=== PATIENT | female | born 1945 | race Caucasian/White ===

== ENCOUNTER 2016-11-19 13:16 | Emergency (ER) | payer OTHER ==
[~2016-11-19] VITALS: Ht 152.4 cm; Wt 51.5 kg
[2016-11-19 16:20] VITALS: BP 146/60
== END 2016-11-19 16:20 | disposition home or self-care (01) ==
LOC: ED 13:16
DX: S92.122A Displaced fracture of body of left talus, initial encounter for closed fracture (principal); S83.92XA Sprain of unspecified site of left knee, initial encounter; I10 Essential (primary) hypertension; E11.9 Type 2 diabetes mellitus without complications; Z88.2 Allergy status to sulfonamides; Z79.4 Long term (current) use of insulin; Z79.899 Other long term (current) drug therapy; W17.89XA Other fall from one level to another, initial encounter; Y93.89 Activity, other specified; Y99.8 Other external cause status; Y92.89 Other specified places as the place of occurrence of the external cause

== ENCOUNTER 2018-04-24 17:26 | Inpatient (IN) | payer OTHER, MEDICAID ==
[~2018-04-24] VITALS: Ht 152.4 cm; Wt 49.1 kg
[2018-04-24 17:50] VITALS: Ht 152.4 cm; Wt 49.1 kg
[2018-04-24 18:52] LABS: BASOPHIL % 0.1 % (0-2); PLATELET COUNT 271 x10^3mcL (130-400)
[2018-04-24 18:56] LABS: ALBUMIN 2.5 g/dL (3.4-5.0); ALKALINE PHOSPHATASE 113 U/L (46-116); ALT/SGPT 15 U/L (14-59); AST/SGOT 20 U/L (15-37); BILIRUBIN TOTAL 0.7 mg/dL (0.20-1.00); CALCIUM 8.4 mg/dL (8.5-10.1); CARBON DIOXIDE 25.6 mmol/L (21-32); CHLORIDE SERUM 102 mmol/L (98-107); GLUCOSE SERUM 81 mg/dL (74-106); POTASSIUM SERUM 4.1 mmol/L (3.5-5.1); RED CELL DISTRIBUTION WIDTH 17.2 % (11.5-14.5); SODIUM SERUM 140 mmol/L (136-145); TOTAL PROTEIN, SERUM 6.8 g/dL (6.4-8.2)
[2018-04-24 18:57] LABS: CREATININE SERUM 4.6 mg/dL (0.6-1.0)
[2018-04-24] MEDS ORDERED: LANTUS SOLOS100 U/M1 SC (20:21)
[2018-04-24] MEDS ORDERED: LOSARTAN POTASS1 TA6 PO (20:21)
[2018-04-24] MEDS ORDERED: GABAPENTIN400 M1 PO (20:22)
[2018-04-24] MEDS ORDERED: CILOSTAZOL100 M1 PO (20:22)
[2018-04-24] MEDS ORDERED: PROZAC40 MG PO (20:22)
[2018-04-24] MEDS ORDERED: ATORVASTATIN CA40 M1 PO (20:22)
[2018-04-24] MEDS ORDERED: HUMALOG KW100 UNIT/1 SC (20:24)
[2018-04-24] MEDS ORDERED: GOOD SENSE ASPI81 M3 PO (20:24)
[2018-04-24 21:11] VITALS: BP 137/72
[2018-04-24 21:29] VITALS: BP 137/72
[2018-04-24 23:10] VITALS: BP 137/72
[2018-04-25 00:32] LABS: MAGNESIUM 2.3 mg/dL (1.8-2.4); PHOSPHOROUS 4.3 mg/dL (2.5-4.9)
[2018-04-25 00:35] LABS: CHOLESTEROL/HDL RATIO 2.7
[2018-04-25 05:34] VITALS: BP 126/60
[2018-04-25 07:24] LABS: CARBON DIOXIDE 22.7 mmol/L (21-32); CHLORIDE SERUM 101 mmol/L (98-107); GLUCOSE SERUM 297 mg/dL (74-106); MAGNESIUM 1.9 mg/dL (1.8-2.4); PHOSPHOROUS 4.1 mg/dL (2.5-4.9); POTASSIUM SERUM 4.1 mmol/L (3.5-5.1); SODIUM SERUM 137 mmol/L (136-145)
[2018-04-25 07:33] LABS: BASOPHIL % 0.3 % (0-2); PLATELET COUNT 239 x10^3mcL (130-400)
[2018-04-25 07:39] LABS: CREATININE SERUM 4.9 mg/dL (0.6-1.0)
[2018-04-25 07:44] LABS: RED CELL DISTRIBUTION WIDTH 17.2 % (11.5-14.5)
[2018-04-25 09:16] VITALS: BP 132/58
[2018-04-25 13:52] VITALS: BP 129/59
[2018-04-25 17:27] VITALS: BP 111/51
[2018-04-25 19:00] VITALS: BP 137/67
[2018-04-26 05:23] VITALS: BP 113/53
[2018-04-26 06:08] LABS: BASOPHIL % 0.4 % (0-2); PLATELET COUNT 269 x10^3mcL (130-400)
[2018-04-26 06:29] LABS: IRON 14 ug/dL (50-170); TOTAL IRON BINDING CAPACITY 133 ug/dL (250-450)
[2018-04-26 06:42] LABS: CALCIUM 8.3 mg/dL (8.5-10.1); CARBON DIOXIDE 23.7 mmol/L (21-32); CHLORIDE SERUM 98 mmol/L (98-107); GLUCOSE SERUM 90 mg/dL (74-106); POTASSIUM SERUM 4.5 mmol/L (3.5-5.1); SODIUM SERUM 135 mmol/L (136-145)
[2018-04-26 06:57] LABS: CREATININE SERUM 5.7 mg/dL (0.6-1.0)
[2018-04-26 07:04] LABS: RED CELL DISTRIBUTION WIDTH 16.8 % (11.5-14.5)
[2018-04-26 09:00] VITALS: BP 119/46
[2018-04-26 12:37] VITALS: BP 101/41
[2018-04-26 15:51] LABS: SOURCE FLUID THORACENTESIS
[2018-04-26 15:53] LABS: APPEARANCE FLUID HAZY; COLOR FLUID YELLOW; LYMPHOCYTE FLUID 25 %; MONOCYTE FLUID 5 %; RBC FLUID 507 /cumm; WBC FLUID 573 /cumm
[2018-04-26 16:25] VITALS: BP 122/46
[2018-04-26 19:00] VITALS: BP 142/62
[2018-04-27 05:57] VITALS: BP 111/50
[2018-04-27 06:42] LABS: BASOPHIL % 1.2 % (0-2); PLATELET COUNT 286 x10^3mcL (130-400)
[2018-04-27 06:44] LABS: RED CELL DISTRIBUTION WIDTH 16.9 % (11.5-14.5)
[2018-04-27 07:01] LABS: CALCIUM 8.5 mg/dL (8.5-10.1); CHLORIDE SERUM 98 mmol/L (98-107); GLUCOSE SERUM 85 mg/dL (74-106); LACTIC DEHYDROGENASE (LDH) 230 U/L (100-190); MAGNESIUM 1.8 mg/dL (1.8-2.4); PHOSPHOROUS 4.4 mg/dL (2.5-4.9); POTASSIUM SERUM 4.3 mmol/L (3.5-5.1); SODIUM SERUM 139 mmol/L (136-145)
[2018-04-27 07:06] LABS: CREATININE SERUM 4.4 mg/dL (0.6-1.0)
[2018-04-27 09:20] VITALS: BP 155/53
[2018-04-27 12:59] VITALS: BP 126/56
[2018-04-27 20:32] VITALS: BP 129/56
[2018-04-28 05:25] VITALS: BP 122/54
[2018-04-28 06:41] LABS: CALCIUM 8.3 mg/dL (8.5-10.1); CARBON DIOXIDE 25.9 mmol/L (21-32); CHLORIDE SERUM 99 mmol/L (98-107); GLUCOSE SERUM 105 mg/dL (74-106); MAGNESIUM 1.8 mg/dL (1.8-2.4); PHOSPHOROUS 5.6 mg/dL (2.5-4.9); POTASSIUM SERUM 3.9 mmol/L (3.5-5.1); SODIUM SERUM 138 mmol/L (136-145)
[2018-04-28 06:46] LABS: BASOPHIL % 0.8 % (0-2); PLATELET COUNT 301 x10^3mcL (130-400)
[2018-04-28 06:54] LABS: CREATININE SERUM 5.5 mg/dL (0.6-1.0)
[2018-04-28 07:13] LABS: RED CELL DISTRIBUTION WIDTH 16.4 % (11.5-14.5)
[2018-04-28 09:33] VITALS: BP 137/70
[2018-04-28 14:04] VITALS: BP 131/58
[2018-04-28] MEDS ORDERED: AUGMENTIN1 TA1 PO (15:47)
[2018-04-28 17:24] VITALS: BP 114/59
[2018-04-28 17:45] VITALS: BP 114/55
[2018-04-28 20:47] VITALS: BP 139/67
== END 2018-04-28 22:13 | disposition home health service (06) | DRG 186 ==
LOC: ED 17:26 → DU 19:55
PROVIDERS: Emergency Medicine; Family Medicine; General Practice; Internal Medicine Nephrology
PROC: 0W993ZZ Drainage of Right Pleural Cavity, Percutaneous Approach (ICD-10-PCS; principal; 2018-04-26)
DX: J90 Pleural effusion, not elsewhere classified (principal); N17.0 Acute kidney failure with tubular necrosis; J96.01 Acute respiratory failure with hypoxia; E43 Unspecified severe protein-calorie malnutrition; N18.6 End stage renal disease; J18.9 Pneumonia, unspecified organism; I12.0 Hypertensive chronic kidney disease with stage 5 chronic kidney disease or end stage renal disease; E11.22 Type 2 diabetes mellitus with diabetic chronic kidney disease; J44.9 Chronic obstructive pulmonary disease, unspecified; D64.9 Anemia, unspecified; E78.00 Pure hypercholesterolemia, unspecified; E78.5 Hyperlipidemia, unspecified; Z99.2 Dependence on renal dialysis; Z79.82 Long term (current) use of aspirin; Z79.4 Long term (current) use of insulin; Z68.20 Body mass index [BMI] 20.0-20.9, adult
CPT/HCPCS: 32555; 36600; 82962; 83880; 87116; 87206; 88344; 94150; 97116-GP; J0885-EC; J1644; J1815; J2001; J2543; J2916; J3490; J7030; J7050; J7620; P9047; Q0092

== ENCOUNTER 2018-06-01 13:20 | Inpatient (IN) | payer OTHER, MEDICAID ==
[~2018-06-01] VITALS: Ht 154.9 cm; Wt 49.5 kg
[~2018-06-01 13:20] MED LIST: ATORVASTATIN CA40 M1 PO; AUGMENTIN1 TA1 PO; CILOSTAZOL100 M1 PO; GABAPENTIN400 M1 PO; GOOD SENSE ASPI81 M3 PO; HUMALOG KW100 UNIT/1 SC; LANTUS SOLOS100 U/M1 SC; LOSARTAN POTASS1 TA6 PO; PROZAC40 MG PO
[2018-06-01 13:21] VITALS: Ht 154.9 cm; Wt 49.5 kg
[2018-06-01 16:02] LABS: BASOPHIL % 1.1 % (0-2); PLATELET COUNT 183 x10^3mcL (130-400); RED CELL DISTRIBUTION WIDTH 20.3 % (11.5-14.5)
[2018-06-01 16:26] LABS: ALKALINE PHOSPHATASE 123 U/L (46-116); ALT/SGPT 25 U/L (14-59); AMYLASE 69 U/L (25-115); AST/SGOT 21 U/L (15-37); BILIRUBIN TOTAL 0.8 mg/dL (0.20-1.00); CALCIUM 9.6 mg/dL (8.5-10.1); CARBON DIOXIDE 25.9 mmol/L (21-32); CHLORIDE SERUM 98 mmol/L (98-107); CHOLESTEROL 146 mg/dL (<200); GLUCOSE SERUM 95 mg/dL (74-106); HDL CHOLESTEROL 42 mg/dL (40-60); LIPASE 149 IU/L (73-393); MAGNESIUM 2.5 mg/dL (1.8-2.4); POTASSIUM SERUM 3.6 mmol/L (3.5-5.1); SODIUM SERUM 138 mmol/L (136-145); T4(THYROXINE) 8.2 ug/dL (4.7-13.3); TOTAL PROTEIN, SERUM 7.2 g/dL (6.4-8.2)
[2018-06-01 16:43] LABS: ALBUMIN 3.3 g/dL (3.4-5.0)
[2018-06-01 16:45] LABS: CREATININE SERUM 6.2 mg/dL (0.6-1.0)
[2018-06-01 16:54] LABS: burr cell (echinocyte) 1+; ovalocyte/elliptocyte 1+; rbc morphology (normal/abnorm) ABNORMAL (NORMAL); tear drop cell (dacryocyte) 1+
[2018-06-01 17:25] VITALS: BP 146/84
[2018-06-01 21:06] VITALS: BP 142/72
[2018-06-02 06:03] VITALS: BP 110/68
[2018-06-02 06:15] LABS: BASOPHIL % 0.5 % (0-2); PLATELET COUNT 160 x10^3mcL (130-400)
[2018-06-02 06:24] LABS: RED CELL DISTRIBUTION WIDTH 20.5 % (11.5-14.5)
[2018-06-02 06:34] LABS: CALCIUM 8.6 mg/dL (8.5-10.1); CARBON DIOXIDE 24.9 mmol/L (21-32); CHLORIDE SERUM 98 mmol/L (98-107); GLUCOSE SERUM 77 mg/dL (74-106); MAGNESIUM 2.5 mg/dL (1.8-2.4); PHOSPHOROUS 6.5 mg/dL (2.5-4.9); POTASSIUM SERUM 3.6 mmol/L (3.5-5.1); SODIUM SERUM 137 mmol/L (136-145)
[2018-06-02 06:53] LABS: CREATININE SERUM 6.4 mg/dL (0.6-1.0)
[2018-06-02 09:32] VITALS: BP 104/71
[2018-06-02 13:22] VITALS: BP 124/52
[2018-06-02 17:30] VITALS: BP 135/67
[2018-06-02 20:50] VITALS: BP 135/68
[2018-06-03] VITALS (11 sets, daily range): BP systolic 117–145; BP diastolic 54–62
[2018-06-03 07:07] LABS: CALCIUM 8.3 mg/dL (8.5-10.1); CARBON DIOXIDE 29.1 mmol/L (21-32); CHLORIDE SERUM 93 mmol/L (98-107); CREATININE SERUM 3.6 mg/dL (0.6-1.0); GLUCOSE SERUM 120 mg/dL (74-106); MAGNESIUM 1.8 mg/dL (1.8-2.4); PHOSPHOROUS 3.5 mg/dL (2.5-4.9); SODIUM SERUM 129 mmol/L (136-145)
[2018-06-03 07:09] LABS: PLATELET COUNT 145 x10^3mcL (130-400)
[2018-06-03 07:24] LABS: RED CELL DISTRIBUTION WIDTH 20.5 % (11.5-14.5)
[2018-06-03 07:25] LABS: rbc morphology (normal/abnorm) ABNORMAL (NORMAL)
[2018-06-03 13:56] LABS: SITE FLUID RIGHT; SOURCE FLUID THORACENTESIS
[2018-06-03 15:59] LABS: AMPHETAMINE QUAL UR NONE DETECTED (See below)
[2018-06-04 05:42] VITALS: BP 137/68
[2018-06-04 06:50] LABS: PLATELET COUNT 141 x10^3mcL (130-400)
[2018-06-04 07:23] LABS: RED CELL DISTRIBUTION WIDTH 20.4 % (11.5-14.5)
[2018-06-04 07:38] LABS: CALCIUM 8.5 mg/dL (8.5-10.1); CHLORIDE SERUM 102 mmol/L (98-107); CREATININE SERUM 2.6 mg/dL (0.6-1.0); GLUCOSE SERUM 80 mg/dL (74-106); MAGNESIUM 1.8 mg/dL (1.8-2.4); PHOSPHOROUS 2.8 mg/dL (2.5-4.9); POTASSIUM SERUM 4.4 mmol/L (3.5-5.1); SODIUM SERUM 140 mmol/L (136-145)
[2018-06-04 08:37] VITALS: BP 147/74
[2018-06-04 11:52] VITALS: BP 130/66
[2018-06-04 16:49] VITALS: BP 130/66
== END 2018-06-04 18:58 | DRG 291 ==
LOC: ED 13:20 → DU 15:43
PROVIDERS: Emergency Medicine; Internal Medicine; ADMIT Internal Medicine
PROC: 0W993ZZ Drainage of Right Pleural Cavity, Percutaneous Approach (ICD-10-PCS; principal; 2018-06-03)
DX: I13.2 Hypertensive heart and chronic kidney disease with heart failure and with stage 5 chronic kidney disease, or end stage renal disease (principal); J96.01 Acute respiratory failure with hypoxia; N18.6 End stage renal disease; N17.9 Acute kidney failure, unspecified; J90 Pleural effusion, not elsewhere classified; E11.22 Type 2 diabetes mellitus with diabetic chronic kidney disease; E11.65 Type 2 diabetes mellitus with hyperglycemia; I50.9 Heart failure, unspecified; K52.9 Noninfective gastroenteritis and colitis, unspecified; E83.41 Hypermagnesemia; E78.5 Hyperlipidemia, unspecified; F32.9 Major depressive disorder, single episode, unspecified; J20.9 Acute bronchitis, unspecified; Z99.2 Dependence on renal dialysis; Z79.4 Long term (current) use of insulin; Z68.21 Body mass index [BMI] 21.0-21.9, adult; Z91.15 Patient's noncompliance with renal dialysis; Z86.718 Personal history of other venous thrombosis and embolism
CPT/HCPCS: 32555; 36600; 82962; 83880; 88344; 97110-GP; 97116-GP; C1729; G0480; J0696; J1644; J1940; J7030; J7040; J7620; Q0092

== ENCOUNTER 2018-06-14 07:04 | Inpatient (IN) | payer OTHER, MEDICAID ==
[~2018-06-14] VITALS: Ht 154.9 cm; Wt 51.1 kg
[2018-06-14 07:43] LABS: BASOPHIL % 1.2 % (0-2); PLATELET COUNT 221 x10^3mcL (130-400)
[2018-06-14 07:54] LABS: RED CELL DISTRIBUTION WIDTH 19.7 % (11.5-14.5)
[2018-06-14 08:12] LABS: ALKALINE PHOSPHATASE 221 U/L (46-116); ALT/SGPT 116 U/L (14-59); AST/SGOT 131 U/L (15-37); BILIRUBIN TOTAL 0.7 mg/dL (0.20-1.00); CALCIUM 8.6 mg/dL (8.5-10.1); CARBON DIOXIDE 20.4 mmol/L (21-32); CHLORIDE SERUM 96 mmol/L (98-107); GLUCOSE SERUM 91 mg/dL (74-106); LIPASE 142 IU/L (73-393); SODIUM SERUM 131 mmol/L (136-145); TOTAL PROTEIN, SERUM 6.8 g/dL (6.4-8.2)
[2018-06-14 08:21] LABS: ALBUMIN 2.8 g/dL (3.4-5.0)
[2018-06-14 08:22] LABS: POTASSIUM SERUM 6.1 mmol/L (3.5-5.1)
[2018-06-14 08:24] LABS: CREATININE SERUM 5.2 mg/dL (0.6-1.0)
[2018-06-14 14:01] VITALS: BP 107/66
[2018-06-14 14:05] VITALS: Ht 154.9 cm; Wt 51.1 kg
[2018-06-14 15:21] VITALS: BP 101/59
[2018-06-14 18:28] VITALS: BP 111/68
[2018-06-14 20:16] VITALS: BP 104/58
[2018-06-15 05:58] VITALS: BP 160/65
[2018-06-15 06:08] LABS: PLATELET COUNT 196 x10^3mcL (130-400)
[2018-06-15 06:29] LABS: BASOPHIL % 2.1 % (0-2); RED CELL DISTRIBUTION WIDTH 19.5 % (11.5-14.5)
[2018-06-15 06:30] LABS: CALCIUM 7.6 mg/dL (8.5-10.1); CARBON DIOXIDE 27.8 mmol/L (21-32); CHLORIDE SERUM 96 mmol/L (98-107); CREATININE SERUM 3.5 mg/dL (0.6-1.0); GLUCOSE SERUM 244 mg/dL (74-106); MAGNESIUM 1.9 mg/dL (1.8-2.4); POTASSIUM SERUM 3.8 mmol/L (3.5-5.1); SODIUM SERUM 132 mmol/L (136-145)
[2018-06-15 09:00] VITALS: BP 133/70
[2018-06-15 12:24] VITALS: BP 133/69
[2018-06-15 15:30] VITALS: BP 133/69
[2018-06-15 16:59] VITALS: BP 134/87
== END 2018-06-15 19:21 | DRG 314 ==
LOC: ED 07:04 → DU 11:31
PROVIDERS: Emergency Medicine; ADMIT Internal Medicine
DX: I95.9 Hypotension, unspecified (principal); N18.6 End stage renal disease; I12.0 Hypertensive chronic kidney disease with stage 5 chronic kidney disease or end stage renal disease; E87.1 Hypo-osmolality and hyponatremia; E11.22 Type 2 diabetes mellitus with diabetic chronic kidney disease; E87.5 Hyperkalemia; D63.1 Anemia in chronic kidney disease; R53.1 Weakness; E78.5 Hyperlipidemia, unspecified; Z99.2 Dependence on renal dialysis; Z68.21 Body mass index [BMI] 21.0-21.9, adult; Z79.84 Long term (current) use of oral hypoglycemic drugs
CPT/HCPCS: 82962; 83880; J3490; Q0092

== ENCOUNTER 2018-07-22 00:57 | Inpatient (IN) | payer OTHER, MEDICAID ==
[~2018-07-22] VITALS: Ht 152.4 cm; Wt 42.2 kg
[2018-07-22 01:22] VITALS: Ht 152.4 cm; Wt 42.2 kg
[2018-07-22 02:20] LABS: BASOPHIL % 0.8 % (0-2); PLATELET COUNT 210 x10^3mcL (130-400)
[2018-07-22 02:34] LABS: acanthocyte (spur cell) 2+; rbc morphology (normal/abnorm) ABNORMAL (NORMAL)
[2018-07-22 02:57] LABS: CK-MB 1.6 ng/mL (0-3.6)
[2018-07-22 02:58] LABS: ALBUMIN 3.9 g/dL (3.4-5.0); ALKALINE PHOSPHATASE 118 U/L (46-116); ALT/SGPT 229 U/L (14-59); AST/SGOT 341 U/L (15-37); C REACTIVE PROTEIN 6.6 mg/dL (<=0.9); CALCIUM 9.9 mg/dL (8.5-10.1); CHLORIDE SERUM 93 mmol/L (98-107); GLUCOSE SERUM 124 mg/dL (74-106); POTASSIUM SERUM 3.8 mmol/L (3.5-5.1); SODIUM SERUM 136 mmol/L (136-145); TOTAL PROTEIN, SERUM 7.8 g/dL (6.4-8.2)
[2018-07-22 02:59] LABS: CREATININE SERUM 5.4 mg/dL (0.6-1.0)
[2018-07-22 03:03] LABS: ERYTHROCYTE SED RATE 11 mm/hr (0-30)
[2018-07-22 03:06] LABS: FREE T4 0.8 ng/dL (0.76-1.46); FREE THYROXINE INDEX 2.5 ug/dL (1.4-4.5); T3 TOTAL 0.56 ng/mL; T4(THYROXINE) 7.6 ug/dL (4.7-13.3)
[2018-07-22 04:46] LABS: MAGNESIUM 2.4 mg/dL (1.8-2.4); PHOSPHOROUS 8.1 mg/dL (2.5-4.9)
[2018-07-22 06:17] LABS: BASOPHIL % 1.1 % (0-2); PLATELET COUNT 181 x10^3mcL (130-400)
[2018-07-22 06:24] LABS: CALCIUM 9.8 mg/dL (8.5-10.1); CARBON DIOXIDE 25.3 mmol/L (21-32); CHLORIDE SERUM 95 mmol/L (98-107); CHOLESTEROL 171 mg/dL (<200); CHOLESTEROL/HDL RATIO 4.8; GLUCOSE SERUM 115 mg/dL (74-106); HDL CHOLESTEROL 36 mg/dL (40-60); MAGNESIUM 2.4 mg/dL (1.8-2.4); PHOSPHOROUS 7.8 mg/dL (2.5-4.9); POTASSIUM SERUM 3.7 mmol/L (3.5-5.1); SODIUM SERUM 135 mmol/L (136-145); TRIGLYCERIDES 139 mg/dL (<150)
[2018-07-22 06:35] LABS: CREATININE SERUM 5.7 mg/dL (0.6-1.0)
[2018-07-22 06:39] LABS: RED CELL DISTRIBUTION WIDTH 20.7 % (11.5-14.5)
[2018-07-22 09:00] VITALS: BP 157/85
[2018-07-22 12:15] VITALS: BP 143/70
[2018-07-22 16:14] LABS: APPEARANCE FLUID HAZY; COLOR FLUID YELLOW; RBC FLUID 37 /cumm; SOURCE FLUID PLEURAL; WBC FLUID 50 /cumm
[2018-07-22 16:15] LABS: LYMPHOCYTE FLUID 8 %; MONOCYTE FLUID 76 %
[2018-07-22 17:25] VITALS: BP 146/77
[2018-07-22 20:58] VITALS: BP 141/75
[2018-07-23 02:57] VITALS: BP 140/51
[2018-07-23 05:23] VITALS: BP 126/55
[2018-07-23 06:11] LABS: BASOPHIL % 0.4 % (0-2); PLATELET COUNT 149 x10^3mcL (130-400)
[2018-07-23 06:36] LABS: CALCIUM 8.4 mg/dL (8.5-10.1); CARBON DIOXIDE 28.9 mmol/L (21-32); CHLORIDE SERUM 100 mmol/L (98-107); CREATININE SERUM 3.7 mg/dL (0.6-1.0); GLUCOSE SERUM 86 mg/dL (74-106); MAGNESIUM 1.9 mg/dL (1.8-2.4); PHOSPHOROUS 3.5 mg/dL (2.5-4.9); SODIUM SERUM 137 mmol/L (136-145)
[2018-07-23 06:59] LABS: RED CELL DISTRIBUTION WIDTH 21.4 % (11.5-14.5)
[2018-07-23 07:06] LABS: POTASSIUM SERUM 2.8 mmol/L (3.5-5.1)
[2018-07-23 09:30] VITALS: BP 131/61
[2018-07-23 12:38] LABS: ovalocyte/elliptocyte 1+; rbc morphology (normal/abnorm) ABNORMAL (NORMAL)
[2018-07-23 13:30] VITALS: BP 112/55
[2018-07-23 17:10] VITALS: BP 133/68
[2018-07-23 20:31] VITALS: BP 142/66
[2018-07-23 21:19] LABS: CALCIUM 8.6 mg/dL (8.5-10.1); CARBON DIOXIDE 27.8 mmol/L (21-32); CHLORIDE SERUM 98 mmol/L (98-107); CREATININE SERUM 3.8 mg/dL (0.6-1.0); GLUCOSE SERUM 168 mg/dL (74-106); POTASSIUM SERUM 4.7 mmol/L (3.5-5.1); SODIUM SERUM 132 mmol/L (136-145)
[2018-07-24 06:04] VITALS: BP 100/50
[2018-07-24 07:02] LABS: BASOPHIL % 0.7 % (0-2); PLATELET COUNT 163 x10^3mcL (130-400)
[2018-07-24 07:09] LABS: RED CELL DISTRIBUTION WIDTH 21.6 % (11.5-14.5)
[2018-07-24 07:13] LABS: CALCIUM 8.5 mg/dL (8.5-10.1); CARBON DIOXIDE 24.9 mmol/L (21-32); CHLORIDE SERUM 99 mmol/L (98-107); CREATININE SERUM 3.8 mg/dL (0.6-1.0); GLUCOSE SERUM 84 mg/dL (74-106); PHOSPHOROUS 2.7 mg/dL (2.5-4.9); POTASSIUM SERUM 4.5 mmol/L (3.5-5.1); SODIUM SERUM 132 mmol/L (136-145)
[2018-07-24 09:10] VITALS: BP 122/52
[2018-07-24 09:36] LABS: rbc morphology (normal/abnorm) ABNORMAL (NORMAL)
[2018-07-24 12:47] VITALS: BP 119/55
[2018-07-24 17:19] VITALS: BP 164/76
[2018-07-24 20:48] VITALS: BP 123/55
[2018-07-25 05:34] VITALS: BP 113/56
[2018-07-25 07:10] LABS: BASOPHIL % 0.7 % (0-2); PLATELET COUNT 139 x10^3mcL (130-400)
[2018-07-25 07:15] LABS: RED CELL DISTRIBUTION WIDTH 21.1 % (11.5-14.5)
[2018-07-25 07:32] LABS: CALCIUM 8.6 mg/dL (8.5-10.1); CARBON DIOXIDE 24.8 mmol/L (21-32); CHLORIDE SERUM 93 mmol/L (98-107); GLUCOSE SERUM 122 mg/dL (74-106); POTASSIUM SERUM 4.6 mmol/L (3.5-5.1); SODIUM SERUM 127 mmol/L (136-145)
[2018-07-25 09:24] VITALS: BP 143/68
[2018-07-25 14:34] VITALS: BP 143/68
[2018-07-25 16:42] VITALS: BP 132/58
[2018-07-25 19:49] VITALS: BP 133/61
[2018-07-26 04:46] VITALS: BP 121/60
[2018-07-26 08:55] VITALS: BP 136/62
== END 2018-07-26 13:45 | disposition home or self-care (01) | DRG 291 ==
LOC: ED 00:57 → MU 03:56 → DU 03:56 → MU 07-24 16:55
PROVIDERS: Specialist; ADMIT General Practice
PROC: 0W993ZZ Drainage of Right Pleural Cavity, Percutaneous Approach (ICD-10-PCS; principal; 2018-07-22)
DX: I13.2 Hypertensive heart and chronic kidney disease with heart failure and with stage 5 chronic kidney disease, or end stage renal disease (principal); I50.43 Acute on chronic combined systolic (congestive) and diastolic (congestive) heart failure; N18.6 End stage renal disease; J90 Pleural effusion, not elsewhere classified; J98.11 Atelectasis; E87.1 Hypo-osmolality and hyponatremia; D68.4 Acquired coagulation factor deficiency; K72.90 Hepatic failure, unspecified without coma; E86.0 Dehydration; E11.22 Type 2 diabetes mellitus with diabetic chronic kidney disease; E11.65 Type 2 diabetes mellitus with hyperglycemia; E83.39 Other disorders of phosphorus metabolism; R33.9 Retention of urine, unspecified; F32.9 Major depressive disorder, single episode, unspecified; E78.5 Hyperlipidemia, unspecified; Z91.15 Patient's noncompliance with renal dialysis; Z91.14 Patient's other noncompliance with medication regimen; Z99.2 Dependence on renal dialysis; Z79.4 Long term (current) use of insulin; Z79.82 Long term (current) use of aspirin; Z86.718 Personal history of other venous thrombosis and embolism; Z68.22 Body mass index [BMI] 22.0-22.9, adult
CPT/HCPCS: 32555; 36600; 82962; 83880; 84439; 87046; 87046-59; 87804; C1729; J1644; J2405; J2543; J3480; Q0092

== ENCOUNTER 2018-10-31 15:28 | Inpatient (IN) | payer OTHER, MEDICAID ==
[~2018-10-31] VITALS: Ht 152.4 cm; Wt 48.2 kg
[2018-10-31 15:59] LABS: BASOPHIL % 0.9 % (0-2); PLATELET COUNT 370 x10^3mcL (130-400)
[2018-10-31 16:00] LABS: RED CELL DISTRIBUTION WIDTH 19.1 % (11.5-14.5)
[2018-10-31 16:25] LABS: ALKALINE PHOSPHATASE 288 U/L (46-116); ALT/SGPT 37 U/L (14-59); AST/SGOT 31 U/L (15-37); BILIRUBIN TOTAL 0.6 mg/dL (0.20-1.00); CALCIUM 8.6 mg/dL (8.5-10.1); CARBON DIOXIDE 24.5 mmol/L (21-32); CHLORIDE SERUM 93 mmol/L (98-107); GLUCOSE SERUM 183 mg/dL (74-106); POTASSIUM SERUM 4.4 mmol/L (3.5-5.1); SODIUM SERUM 132 mmol/L (136-145); TOTAL PROTEIN, SERUM 7.3 g/dL (6.4-8.2)
[2018-10-31 16:27] LABS: ALBUMIN 3.2 g/dL (3.4-5.0); CREATININE SERUM 4.2 mg/dL (0.6-1.0)
[2018-10-31 16:51] LABS: CHOLESTEROL 141 mg/dL (<200); LIPASE 426 IU/L (73-393)
[2018-10-31 16:52] LABS: AMYLASE 148 U/L (25-115); HDL CHOLESTEROL 73 mg/dL (40-60)
[2018-10-31 20:34] LABS: MAGNESIUM 2.3 mg/dL (1.8-2.4); PHOSPHOROUS 6.9 mg/dL (2.5-4.9)
[2018-10-31 20:40] LABS: T3 TOTAL 0.68 ng/mL
[2018-10-31 20:44] LABS: FREE T4 0.92 ng/dL (0.76-1.46); T4(THYROXINE) 6.4 ug/dL (4.7-13.3)
[2018-10-31 21:16] VITALS: BP 126/59
[2018-10-31] MEDS ORDERED: PLA75 PO (23:49)
[2018-10-31] MEDS ORDERED: MIRTAZAPINE7.5 M1 PO (23:50)
[2018-10-31] MEDS ORDERED: METOPROLOL TART25 M1 PO (23:53)
[2018-10-31] MEDS ORDERED: ARICEPT5 MG PO (23:57)
[2018-11-01 06:14] VITALS: BP 131/61
[2018-11-01 06:57] LABS: BASOPHIL % 1.2 % (0-2); PLATELET COUNT 338 x10^3mcL (130-400)
[2018-11-01 07:01] LABS: RED CELL DISTRIBUTION WIDTH 18.3 % (11.5-14.5)
[2018-11-01 07:39] LABS: CALCIUM 8.3 mg/dL (8.5-10.1); CARBON DIOXIDE 23.2 mmol/L (21-32); CHLORIDE SERUM 94 mmol/L (98-107); GLUCOSE SERUM 110 mg/dL (74-106); POTASSIUM SERUM 4.7 mmol/L (3.5-5.1); SODIUM SERUM 134 mmol/L (136-145)
[2018-11-01 07:41] LABS: CREATININE SERUM 4.9 mg/dL (0.6-1.0)
[2018-11-01 09:24] VITALS: BP 126/59
[2018-11-01 09:58] LABS: AMPHETAMINE QUAL UR NONE DETECTED (See below)
[2018-11-01 10:07] LABS: microscopic required? YES; urine erythrocyte NEGATIVE (NEGATIVE)
[2018-11-01 13:03] VITALS: BP 130/63
[2018-11-01 17:35] VITALS: BP 143/71
[2018-11-01 21:22] VITALS: BP 156/68
[2018-11-02 06:03] VITALS: BP 147/62
[2018-11-02 07:03] LABS: BASOPHIL % 1.2 % (0-2); PLATELET COUNT 296 x10^3mcL (130-400)
[2018-11-02 07:04] LABS: CALCIUM 8.2 mg/dL (8.5-10.1); CARBON DIOXIDE 23.4 mmol/L (21-32); CHLORIDE SERUM 101 mmol/L (98-107); CREATININE SERUM 3.4 mg/dL (0.6-1.0); GLUCOSE SERUM 88 mg/dL (74-106); POTASSIUM SERUM 3.3 mmol/L (3.5-5.1); SODIUM SERUM 139 mmol/L (136-145)
[2018-11-02 07:48] LABS: RED CELL DISTRIBUTION WIDTH 18.1 % (11.5-14.5)
[2018-11-02 08:48] VITALS: BP 159/54
[2018-11-02 14:10] LABS: SOURCE FLUID THORACENTESIS
[2018-11-02 14:11] LABS: APPEARANCE FLUID HAZY; COLOR FLUID YELLOW; RBC FLUID 60 /cumm; WBC FLUID 82 /cumm
[2018-11-02 14:12] LABS: LYMPHOCYTE FLUID 67 %; MONOCYTE FLUID 16 %
[2018-11-02 17:22] VITALS: BP 145/53
[2018-11-02 21:25] VITALS: BP 144/53
[2018-11-03 05:17] VITALS: BP 112/46
[2018-11-03 07:01] LABS: CHLORIDE SERUM 100 mmol/L (98-107); GLUCOSE SERUM 92 mg/dL (74-106); POTASSIUM SERUM 4.1 mmol/L (3.5-5.1); SODIUM SERUM 134 mmol/L (136-145)
[2018-11-03 07:12] LABS: CREATININE SERUM 4.2 mg/dL (0.6-1.0)
[2018-11-03 07:18] LABS: BASOPHIL % 0.5 % (0-2); PLATELET COUNT 281 x10^3mcL (130-400)
[2018-11-03 07:36] LABS: RED CELL DISTRIBUTION WIDTH 17.5 % (11.5-14.5)
[2018-11-03] MEDS ORDERED: ZESTRIL5 MG PO (09:23)
[2018-11-03 09:31] VITALS: BP 103/42
[2018-11-03] MEDS ORDERED: ROC1I IM (16:06)
[2018-11-03 17:21] VITALS: BP 138/89
[2018-11-03 18:17] VITALS: BP 138/89
[2018-11-03 21:09] VITALS: BP 143/51
[2018-11-04 13:13] VITALS: Ht 152.4 cm; Wt 48.2 kg
== END 2018-11-03 21:30 | DRG 186 ==
LOC: ED 15:28 → DU 20:01 → MU 20:01 → DU 21:10 → MU 11-01 16:32
PROVIDERS: Emergency Medicine; Internal Medicine; ADMIT General Practice
PROC: 0W993ZZ Drainage of Right Pleural Cavity, Percutaneous Approach (ICD-10-PCS; principal; 2018-11-02)
DX: J90 Pleural effusion, not elsewhere classified (principal); I50.43 Acute on chronic combined systolic (congestive) and diastolic (congestive) heart failure; N18.6 End stage renal disease; N17.0 Acute kidney failure with tubular necrosis; I13.2 Hypertensive heart and chronic kidney disease with heart failure and with stage 5 chronic kidney disease, or end stage renal disease; E44.0 Moderate protein-calorie malnutrition; E87.1 Hypo-osmolality and hyponatremia; E11.22 Type 2 diabetes mellitus with diabetic chronic kidney disease; E11.65 Type 2 diabetes mellitus with hyperglycemia; D63.1 Anemia in chronic kidney disease; E83.39 Other disorders of phosphorus metabolism; E02 Subclinical iodine-deficiency hypothyroidism; I34.0 Nonrheumatic mitral (valve) insufficiency; I36.1 Nonrheumatic tricuspid (valve) insufficiency; F32.9 Major depressive disorder, single episode, unspecified; I25.10 Atherosclerotic heart disease of native coronary artery without angina pectoris; R26.2 Difficulty in walking, not elsewhere classified; F03.90 Unspecified dementia, unspecified severity, without behavioral disturbance, psychotic disturbance, mood disturbance, and anxiety; Z99.2 Dependence on renal dialysis; Z79.4 Long term (current) use of insulin; Z68.21 Body mass index [BMI] 21.0-21.9, adult
CPT/HCPCS: 32555; 82962; 83880; 84439; 88344; 97116-GP; 97530-GP; G0378; J1644; J7030; Q0092